=== PATIENT | female | born 1990 | race Hispanic/Latino ===

== ENCOUNTER 2020-09-19 22:45 | Inpatient (IN) | payer OTHER ==
[2020-09-19 23:31] VITALS: BMI 34.0
[2020-09-19] MEDS ORDERED: hydrALAZINE 20 MG/ML VIAL SLOW IVP PRN (23:38)
[2020-09-19 23:59] LABS: Amnisure Test RUPTURE DETECTED (No Rupture)
[2020-09-20] MEDS ORDERED: Ondansetron PF 4 MG/2 ML Vial IVP PRN ×2 (00:11→06:20)
[2020-09-20] MEDS ORDERED: Acetaminophen 500 MG TAB PO PRN (00:11)
[2020-09-20] MEDS ORDERED: Promethazine HCl 25 MG/ML VIAL IM PRN (00:11)
[2020-09-20] MEDS ORDERED: Butorphanol Tartrate 1 MG/ML VIAL SLOW IVP PRN (00:11)
[2020-09-20] MEDS ORDERED: Betamet Acet/Betamet Na Ph 30 MG/5 ML VIAL IM SCH (00:30)
[2020-09-20] MEDS ORDERED: Azithromycin 1,000 MG in Sodium Chloride 0.9% 500 ML IVPB SCH ×2 (00:30→01:30)
[2020-09-20] MEDS ORDERED: Azithromycin 250 MG TAB PO SCH (00:30)
[2020-09-20] MEDS ORDERED: Ampicillin 2 GM in Sodium Chloride 0.9% 100 ML IVPB SCH ×2 (01:00→01:30)
[2020-09-20 01:12] LABS: Hemoglobin 10.6 g/dL (12.0-15.5); Mean Corpuscular HGB CONC 33.9 g/dL (32.0-36.0); Mean Corpuscular Hemoglobin 28.9 pg (27.0-33.0); Mean Corpuscular Volume 85.3 fl (81.6-98.3); Mean Platelet Volume 10.6 fl (7.4-10.4); Platelet Count 230 10x3/uL (150-450); RBC Distribution Width 15.7 % (11.5-14.5); Red Blood Cell (RBC) Count 3.67 10x6/uL (3.90-5.03); White Blood Cell (WBC) Count 10.4 10x3/uL (3.5-10.5)
[2020-09-20] MEDS ORDERED: Sterile Water 10 ML ONE (01:28)
[2020-09-20] MEDS ORDERED: Ampicillin 2 GM VIAL ONE (01:28)
[2020-09-20] MEDS ORDERED: Bicitra 30 ML UDCUP PO PRN (01:29)
[2020-09-20] MEDS ORDERED: Azithromycin 500 MG VIAL ONE (01:29)
[2020-09-20] MEDS ORDERED: Famotidine/PF 20 mg/2ml Vial SLOW IVP PRN (01:29)
[2020-09-20] MEDS ORDERED: CEFAZOLIN 2 GM in Premix Bag 1 BAG IVPB SCH (01:45)
[2020-09-20 01:52] LABS: Hep B Surf Ag Non-Reactive S/CO (NonReactive); Syphilis Antibody Nonreactive (Nonreactive); Syphilis Antibody Index 0.36 S/CO (<1.00 Non-Reactive)
[2020-09-20 02:03] LABS: HBSAg Index 0.15 S/CO (0-0.99)
[2020-09-20] MEDS ORDERED: Methylergonovine 0.2 MG/ML VIAL ONE (02:11)
[2020-09-20] MEDS ORDERED: Carboprost 250 MCG/ML AMP ONE (02:12)
[2020-09-20] MEDS ORDERED: Ketorolac Tromethamine 30 MG/ML VIAL ONE (02:48)
[2020-09-20] MEDS ORDERED: Dexamethasone 4 mg/ml Vial ONE (02:50)
[2020-09-20] MEDS ORDERED: Fentanyl 100 MCG/2 ML VIAL ONE (02:50)
[2020-09-20] MEDS ORDERED: Morphine PF 10 MG/10 ML VIAL ONE (02:50)
[2020-09-20] MEDS ORDERED: Oxytocin 10 UNITS/ML VIAL ONE (02:50)
[2020-09-20] MEDS ORDERED: Ondansetron PF 4 MG/2 ML Vial ONE (02:50)
[2020-09-20] MEDS ORDERED: PHENYLEPHRINE-NS 100 MCG/ML 10 ML SYRINGE ONE (02:51)
[2020-09-20] MEDS ORDERED: NS w/ Oxytocin 30 units 500 ML ONE (05:04)
[2020-09-20 05:47] LABS: SARS-CoV-2 NAA Rapid Test Not Detected (NotDetected)
[2020-09-20] MEDS ORDERED: HYDROcodone/Acetaminophen 5/325 mg Tablet PO PRN (06:20)
[2020-09-20] MEDS ORDERED: Adacel (T-DAP) 0.5 ML SYRINGE IM ONE (06:20)
[2020-09-20] MEDS ORDERED: Lanolin Ointment 7 GM TUBE TOP PRN (06:20)
[2020-09-20] MEDS ORDERED: Bisacodyl 10 MG SUPP PR PRN (06:20)
[2020-09-20] MEDS ORDERED: hydrALAZINE 20 MG/ML VIAL SLOW IVP PRN (06:20)
[2020-09-20] MEDS ORDERED: NS w/ Oxytocin 30 units 500 ML IV SCH (06:45)
[2020-09-20] MEDS: Docusate Calcium (SURFAK) 240 MG CAP PO SCH ×2 (08:57→22:05)
[2020-09-20] MEDS: Simethicone Chewable 80 MG TAB PO PRN ×2 (08:57→15:06)
[2020-09-20] MEDS: Ketorolac Tromethamine 30 MG/ML VIAL IVP SCH ×3 (09:00→17:40)
[2020-09-20] MEDS: Ferrous Sulfate 325 MG TAB PO SCH ×2 (09:00→19:45)
[2020-09-20] MEDS: Prenatal Vitamin 1 TAB PO SCH (15:06)
[2020-09-20] MEDS: Ibuprofen 800 MG TAB PO SCH (22:05)
[2020-09-21] MEDS ORDERED: Ibuprofen 800 MG TAB PO SCH (06:00)
[2020-09-21] MEDS: Ibuprofen 800 MG TAB PO SCH ×3 (06:20→22:27)
[2020-09-21 06:57] LABS: Hemoglobin 9.9 g/dL (12.0-15.5); Mean Corpuscular HGB CONC 33.2 g/dL (32.0-36.0); Mean Corpuscular Hemoglobin 29.2 pg (27.0-33.0); Mean Corpuscular Volume 87.9 fl (81.6-98.3); Mean Platelet Volume 10.9 fl (7.4-10.4); Platelet Count 263 10x3/uL (150-450); RBC Distribution Width 15.8 % (11.5-14.5); Red Blood Cell (RBC) Count 3.39 10x6/uL (3.90-5.03); White Blood Cell (WBC) Count 11.8 10x3/uL (3.5-10.5)
[2020-09-21] MEDS: Docusate Calcium (SURFAK) 240 MG CAP PO SCH ×2 (09:44→22:27)
[2020-09-21] MEDS: Ferrous Sulfate 325 MG TAB PO SCH ×2 (09:44→22:27)
[2020-09-21] MEDS: Prenatal Vitamin 1 TAB PO SCH (09:44)
[2020-09-21] MEDS: HYDROcodone/Acetaminophen 5/325 mg Tablet PO PRN (22:30)
[2020-09-22] MEDS: Ibuprofen 800 MG TAB PO SCH ×3 (05:37→21:55)
[2020-09-22] MEDS: Docusate Calcium (SURFAK) 240 MG CAP PO SCH ×2 (08:50→21:55)
[2020-09-22] MEDS: Prenatal Vitamin 1 TAB PO SCH (08:50)
[2020-09-22] MEDS: Ferrous Sulfate 325 MG TAB PO SCH ×2 (08:50→21:54)
[2020-09-22] MEDS: HYDROcodone/Acetaminophen 5/325 mg Tablet PO PRN (21:56)
[2020-09-23] MEDS: Ibuprofen 800 MG TAB PO SCH (06:03)
[2020-09-23] MEDS: Ferrous Sulfate 325 MG TAB PO SCH (07:59)
[2020-09-23] MEDS: Prenatal Vitamin 1 TAB PO SCH (07:59)
[2020-09-23] MEDS: Docusate Calcium (SURFAK) 240 MG CAP PO SCH (08:00)
[2020-09-23 08:12] VITALS: BP 96/55; TEMP 98.2
== END 2020-09-23 10:55 | disposition home or self-care (01) | DRG 788 ==
LOC: CSHLD/OP 22:45 → CSHLD 09-20 00:43 → CSHPP 09-20 06:18
PROVIDERS: ADMIT Family Medicine; ATTEND Family Medicine
PROC: 10D00Z1 Extraction of Products of Conception, Low, Open Approach (ICD-10-PCS; principal; 2020-09-20)
PROC: 4A0HXCZ Measurement of Products of Conception, Cardiac Rate, External Approach (ICD-10-PCS; 2020-09-20)
DX: O32.8XX1 Maternal care for other malpresentation of fetus, fetus 1 (principal); O30.033 Twin pregnancy, monochorionic/diamniotic, third trimester; Z3A.33 33 weeks gestation of pregnancy; Z37.2 Twins, both liveborn; O42.013 Preterm premature rupture of membranes, onset of labor within 24 hours of rupture, third trimester; O32.8XX2 Maternal care for other malpresentation of fetus, fetus 2
CPT/HCPCS: 51702; 76815; 84112; 85027; 86780; 86850; 86900; 86901; 87340; 88307; 99285; J0690; J1100; J1885; J2274; J2405; J3010; U0002